=== PATIENT | male | born 1960 | race Caucasian/White ===

== ENCOUNTER 2019-11-30 06:20 | Day surgery (SDC) | payer MEDICARE ==
[~2019-11-30] VITALS: Ht 177.8 cm; Wt 121.6 kg
[~2019-11-30 06:20] MED LIST: ALPRAZOLAM ER1 MG PO; CRESTOR40 MG PO; FLEXERIL PO; LISINOPRIL20 M1 PO; MELOXICAM7.5 MG PO; METOPROLOL50 M1 PO; MONTELUKAST SOD10 MG PO; OXYCODO-APAP1 TA2 PO; PROTONIX40 M2 PO; ROPINIROLE5 MG PO; TAMSULOSIN0.4 MG PO; VENLAFAXINE150 M1 PO
[2019-11-30] MEDS ORDERED: SINGULAIR10 MG PO (06:50)
[2019-11-30] MEDS ORDERED: PROAIR HFA IN (06:51)
[2019-11-30] MEDS ORDERED: ASPIRIN 81 LOW81 MG PO (06:51)
[2019-11-30] MEDS ORDERED: EFFEXOR37.5 MG PO (06:52)
[2019-11-30] MEDS ORDERED: XANAX1 MG PO (06:52)
[2019-11-30 08:22] VITALS: BP 141/82
[2019-12-13] MEDS ORDERED: DICLOFENAC75 MG PO (15:41)
[2020-01-03] MEDS ORDERED: OXYCODO-APAP1 TA2 PO (15:25)
[2020-01-31] MEDS ORDERED: OXYCODO-APAP1 TA2 PO (15:09)
== END 2019-11-30 08:39 | disposition home or self-care (01) ==
LOC: ORM 06:20
PROVIDERS: ATTEND Anesthesiology Pain Medicine
DX: M25.561 Pain in right knee (principal); M65.861 Other synovitis and tenosynovitis, right lower leg; Z01.84 Encounter for antibody response examination
CPT/HCPCS: Q9967

== ENCOUNTER 2021-02-27 07:36 | Day surgery (SDC) | payer MEDICARE ==
[~2021-02-27] VITALS: Ht 177.8 cm; Wt 120.2 kg
[~2021-02-27 07:36] MED LIST changes: +ASPIRIN 81 LOW81 MG PO; +DICLOFENAC75 MG PO; +EFFEXOR37.5 MG PO; +MEDDOSEPAK PO; +PROAIR HFA IN; +SINGULAIR10 MG PO; +XANAX1 MG PO
[2021-02-27] MEDS ORDERED: OXYCODO-APAP1 TA2 PO (09:46)
[2021-02-27] MEDS ORDERED: DICLOFENAC75 MG PO (09:48)
[2021-02-27 10:04] VITALS: BP 142/84
== END 2021-02-27 10:25 | disposition home or self-care (01) ==
LOC: ORM 07:36
PROVIDERS: ATTEND Anesthesiology Pain Medicine
DX: R07.82 Intercostal pain (principal)

== ENCOUNTER 2021-09-09 06:23 | Inpatient (IN) | payer MEDICARE ==
[~2021-09-09] VITALS: Ht 177.8 cm; Wt 112.0 kg
[2021-09-09 12:34] VITALS: BP 135/77
== END 2021-09-09 14:55 | disposition home or self-care (01) | DRG 470 ==
LOC: ORM 06:23 → MS2 11:30
PROVIDERS: ADMIT Hospitalist; ATTEND Orthopaedic Surgery
PROC: 0SRC0JA Replacement of Right Knee Joint with Synthetic Substitute, Uncemented, Open Approach (ICD-10-PCS; principal; 2021-09-09)
PROC: 3E0T3BZ Introduction of Anesthetic Agent into Peripheral Nerves and Plexi, Percutaneous Approach (ICD-10-PCS; 2021-09-09)
DX: M17.11 Unilateral primary osteoarthritis, right knee (principal); I10 Essential (primary) hypertension; J44.9 Chronic obstructive pulmonary disease, unspecified; F41.9 Anxiety disorder, unspecified; F32.A Depression, unspecified; N40.0 Benign prostatic hyperplasia without lower urinary tract symptoms; Z01.818 Encounter for other preprocedural examination; Z11.52 Encounter for screening for COVID-19; Z01.811 Encounter for preprocedural respiratory examination
CPT/HCPCS: J0131